=== PATIENT | female | born 1980 | race Asian ===

== ENCOUNTER 2021-05-18 19:08 | Emergency (ER) | payer OTHER ==
[~2021-05-18] VITALS: Ht 172.7 cm; Wt 63.5 kg
--- NOTE | 2021-05-18 19:30 | NUR ---
Pt ambulated to ER steady gait [facility] c/o back pain PL:07/01 radiating to her buttocks and leg. pt stated she was walking down a flight of stairs and fell. A/O x4, no SOB or labored breathing, afebrile. Denies CP/pressure. Denies any GI/ distress.
--- NOTE | 2021-05-18 19:35 | NUR ---
Dr. Poole at bedside, MSE in progress.
[2021-05-18] MEDS ORDERED: LIDOCAINE 5% PATCH TD ONE (19:59)
[2021-05-18] MEDS: LIDOCAINE 5% PATCH TD ONE (20:00)
--- NOTE | 2021-05-18 20:05 | NUR ---
Pt noted with 49 ml pre-void residual, PVR noted to be 0 ml.
[2021-05-18 20:19] LABS: HEMATOCRIT 33.3 % (31.2-41.9); MEAN CORPUSCULAR HEMOGLOBIN 26.6 uug (24.7-32.8); MEAN CORPUSCULAR VOLUME 82.4 fL (75.5-95.3); PLATELET COUNT (AUTO) 434 K/uL (179-408)
[2021-05-18 20:24] LABS: CREATININE 0.8 mg/dL (0.6-1.3); POTASSIUM 3.5 mmol/L (3.5-5.1)
[2021-05-18 20:24] LABS: *URINE HCG, QUAL NEGATIVE (NEGATIVE)
[2021-05-18 20:31] LABS: *AMPHETAMINE, URINE NEGATIVE (NEGATIVE); *CANNABINOID, URINE NEGATIVE (NEGATIVE); *COCCAINE, URINE NEGATIVE (NEGATIVE); *OPIATE, URINE NEGATIVE (NEGATIVE); *PHENCYCLIDINE SCREEN,URINE NEGATIVE (NEGATIVE)
[2021-05-18] MEDS: DEXAMETHASONE SOD PHOSPHATE 4 MG INJ IM ONE (20:35)
--- NOTE | 2021-05-18 20:35 | NUR ---
Pt being taken down for CT, stable condition.
[2021-05-18] MEDS: KETOROLAC TROMETHAMINE 30 MG INJ IM ONE (20:36)
[2021-05-18] MEDS: MORPHINE SULFATE 4 MG/1 ML DISP.SYRIN IM ONE (20:38)
[2021-05-18] MEDS ORDERED: KETOROLAC TROMETHAMINE 30 MG INJ ONE (20:41)
[2021-05-18] MEDS ORDERED: MORPHINE SULFATE 4 MG/1 ML DISP.SYRIN ONE (20:42)
[2021-05-18] MEDS ORDERED: DEXAMETHASONE SOD PHOSPHATE 10 MG INJ ONE (20:42)
--- NOTE | 2021-05-18 20:50 | NUR ---
Pt returned from CT, stable condition.
[2021-05-18] MEDS: HYDROCODONE/APAP 5-325MG TABLET PO ONE (22:34)
[2021-05-18] MEDS ORDERED: LIDO30AD10 TD (22:39)
[2021-05-18] MEDS ORDERED: HYDROCODONE/APAP 5-325MG TABLET ONE (22:39)
[2021-05-18] MEDS ORDERED: BACL10TA PO (22:39)
[2021-05-18] MEDS ORDERED: IBUP-1955 PO (22:39)
[2021-05-18] MEDS ORDERED: HYDR-4209 PO (22:46)
--- NOTE | 2021-05-18 23:00 | NUR ---
Patient discharged to home in stable condition. Written and verbal after care instructions given. Patient verbalizes understanding of instructions. Stressed follow up or return to ER for worsening s/s. Steady gait. Picked up by family. Denies any pain/discomfort.
[2021-05-18 23:11] VITALS: BP 112/74
== END 2021-05-18 23:00 | disposition home or self-care (01) ==
LOC: ER 19:08
DX: M54.41 Lumbago with sciatica, right side (principal); Z98.1 Arthrodesis status; Z82.49 Family history of ischemic heart disease and other diseases of the circulatory system; M81.0 Age-related osteoporosis without current pathological fracture
CPT/HCPCS: 36415; 72131; 80048; 80307; 84703; 85025; 96372 ×2; 99284; J1100; J1885; J2270; A4663